=== PATIENT | female | born 1945 | race Caucasian/White ===

== ENCOUNTER 2022-12-27 15:31 | Emergency (ER) | payer MEDICARE ==
[~2022-12-27] VITALS: Ht 162.6 cm; Wt 77.1 kg
[2022-12-27] MEDS ORDERED: ISOMON20 PO (16:42)
[2022-12-27] MEDS ORDERED: POTCHL20ER PO (16:42)
[2022-12-27] MEDS ORDERED: METF500 PO (16:43)
[2022-12-27] MEDS ORDERED: ATOR10 PO (16:43)
[2022-12-27] MEDS ORDERED: FURO20 PO (16:43)
[2022-12-27 16:54] LABS: Influenza A, PCR NEGATIVE (NEGATIVE); Influenza B, PCR NEGATIVE (NEGATIVE); Resp Syncytial Virus, PCR NEGATIVE (NEGATIVE); SARS-Cov-2 (COVID-19) PCR, MMC NEGATIVE (NEGATIVE)
== END 2022-12-27 17:41 | disposition home or self-care (01) ==
LOC: ER 15:31
PROVIDERS: Student in an Organized Health Care Education/Training Program
DX: J02.9 Acute pharyngitis, unspecified (principal); Z20.822 Contact with and (suspected) exposure to COVID-19; Z79.899 Other long term (current) drug therapy
CPT/HCPCS: 0241U; 71046; 87430